=== PATIENT | female | born 1960 ===

== ENCOUNTER 2021-10-07 18:39 | Inpatient (IN) | payer BC ==
[~2021-10-07 18:39] MED LIST: Iopamidol-370 76% 500 ML 1 ML ONE
[2021-10-07 19:23] LABS: #Basophils 0.1 thou/uL (0.0-0.2); #Lymphocytes 0.4 thou/uL (1.20-3.40); #Monocytes 0.5 thou/uL (0.11-0.59); #Neutrophils 5.4 thou/uL (1.40-6.50); %Basophils 0.9 % (0.0-1.0); %Eosinophils 0.3 % (0.0-10.0); %Lymphocytes 5.6 % (21.0-51.0); %Monocytes 7.4 % (0.0-10.0); %Neutrophils 85.8 % (42.0-75.0); Hemoglobin 9.2 g/dL (12.0-16.0); Mean Corpuscular Hemoglobin 32.9 pg (27.0-31.0); RBC Distribution Width 14.8 % (11.5-14.5); Red Blood Cell (RBC) Count 2.79 mill/uL (4.20-5.40); White Blood Cell (WBC) Count 6.2 thou/uL (4.8-10.8)
[2021-10-07 19:42] LABS: MDiff Complete? YES; Macrocytosis SLIGHT = 6-15 cells (100X) (0-5/hpf); Mean Platelet Volume 9.4 fL (7.4-10.4); Platelet Count 45 thou/uL (130-400); Platelet Morphology Comment Appears Decreased; Polychromasia SLIGHT = 2-3 cells (100X) (0-2/hpf)
[2021-10-07 19:44] LABS: ALT (SGPT) 38 U/L (8-55); AST (SGOT) 56 U/L (5-34); Albumin 2.4 g/dL (3.4-4.8); Alkaline Phosphatase 139 U/L (40-110); Anion Gap 12 mmol/L (10-20); BUN (Urea Nitrogen) 18 mg/dL (9.8-20.1); Bilirubin, Total 2.9 mg/dL (0.2-1.2); Calc. Creatinine Clearance 0 mL/min (70-130); Calcium 8.2 mg/dL (7.8-10.44); Carbon Dioxide 18 mmol/L (23-31); Chloride 102 mmol/L (98-107); Globulin 3.8 g/dL (2.4-3.5); Glucose 158 mg/dL (80-115); Lipase 15 U/L (8-78); Potassium 3.9 mmol/L (3.5-5.1); Protein, Total 6.2 g/dL (5.8-8.1); Sodium 128 mmol/L (136-145)
[2021-10-07] MEDS ORDERED: Morphine 4 MG/ML VIAL ONE (19:46)
[2021-10-07] MEDS ORDERED: Acetaminophen 500 MG TAB ONE (19:46)
[2021-10-07 19:51] LABS: Bilirubin Negative (Negative); Blood, Urine Negative (Negative); Clarity Clear (Clear); Glucose, Urine (Dipstick) Normal (Negative); Ketone, Urine Negative (Negative); Leukocyte Negative Leu/uL (Negative); Nitrite Negative (Negative); Protein, Urine (Dipstick) Negative (Neg-Trace); Specific Gravity, Urine 1.026 (1.002-1.036); Urobilinogen 6 mg/dL (Less than 2); pH, Urine 6.5 (5.0-9.0)
[2021-10-07] MEDS ORDERED: Ondansetron PF 4 MG/2 ML Vial ONE (19:58)
[2021-10-07] MEDS ORDERED: metroNIDAZOLE 500 MG in Premix Bag 1 BAG IVPB SCH (22:45)
[2021-10-07] MEDS ORDERED: Sodium Chloride 0.9% 1,000 ML IV SCH (23:00)
[2021-10-07 23:34] VITALS: BMI 42.0
[2021-10-08] MEDS ORDERED: Lactated Ringer's 1,000 ML IV SCH (03:00)
[2021-10-08] MEDS ORDERED: Sodium Chloride 0.9% 1,000 ML IV SCH (03:15)
[2021-10-08] MEDS ORDERED: Azithromycin 500 MG in Sodium Chloride 0.9% 250 ML 250 ML IVPB SCH (06:00)
[2021-10-08 06:54] LABS: #Basophils 0.1 thou/uL (0.0-0.2); #Eosinphils 0.1 thou/uL (0.0-0.7); #Lymphocytes 0.4 thou/uL (1.20-3.40); #Monocytes 0.6 thou/uL (0.11-0.59); #Neutrophils 4.4 thou/uL (1.40-6.50); %Basophils 1.5 % (0.0-1.0); %Lymphocytes 6.7 % (21.0-51.0); %Monocytes 11.6 % (0.0-10.0); %Neutrophils 79.2 % (42.0-75.0); Hemoglobin 8.8 g/dL (12.0-16.0); Mean Corpuscular HGB CONC 32.4 g/dL (32.0-36.0); Mean Corpuscular Hemoglobin 33.8 pg (27.0-31.0); Mean Platelet Volume 9.9 fL (7.4-10.4); Platelet Count 43 thou/uL (130-400); RBC Distribution Width 14.4 % (11.5-14.5); Red Blood Cell (RBC) Count 2.61 mill/uL (4.20-5.40); White Blood Cell (WBC) Count 5.6 thou/uL (4.8-10.8)
[2021-10-08 07:00] LABS: INR-International Normal Ratio 1.6; Prothrombin Time 19.3 sec (12.0-14.7)
[2021-10-08] MEDS ORDERED: metroNIDAZOLE 500 MG in Premix Bag 1 BAG IVPB SCH (07:00)
[2021-10-08 07:03] LABS: ALT (SGPT) 36 U/L (8-55); AST (SGOT) 51 U/L (5-34); Albumin 2.4 g/dL (3.4-4.8); Alkaline Phosphatase 135 U/L (40-110); Anion Gap 11 mmol/L (10-20); BUN (Urea Nitrogen) 15 mg/dL (9.8-20.1); Bilirubin, Total 3.4 mg/dL (0.2-1.2); Calc. Creatinine Clearance 175 mL/min (70-130); Calcium 7.9 mg/dL (7.8-10.44); Carbon Dioxide 20 mmol/L (23-31); Chloride 102 mmol/L (98-107); Globulin 3.7 g/dL (2.4-3.5); Glucose 101 mg/dL (80-115); Potassium 3.5 mmol/L (3.5-5.1); Protein, Total 6.1 g/dL (5.8-8.1); Sodium 129 mmol/L (136-145)
[2021-10-08] MEDS: cefTRIAXone\\ROCEPHIN 1 GM in Sodium Chloride 0.9% 100 ML IVPB SCH (08:43)
[2021-10-08] MEDS: metroNIDAZOLE 500 MG in Premix Bag 1 BAG IVPB SCH ×2 (08:46→15:28)
[2021-10-08] MEDS: Furosemide 40 MG TAB PO SCH (08:47)
[2021-10-08] MEDS: Ondansetron ODT 4 MG TAB PO SCH ×2 (08:47→20:27)
[2021-10-08] MEDS: Rifaximin 550 MG TAB PO SCH ×2 (08:48→20:28)
[2021-10-08] MEDS: Spironolactone 100 MG TAB PO SCH (08:48)
[2021-10-08] MEDS ORDERED: Ibuprofen 200 MG TAB PO PRN (14:21)
[2021-10-08 14:33] LABS: SARS-CoV-2 PCR by NAA Not Detected (NotDetected)
[2021-10-08] MEDS: Ursodiol 300 MG CAP PO SCH (20:29)
[2021-10-09] MEDS: metroNIDAZOLE 500 MG in Premix Bag 1 BAG IVPB SCH ×2 (00:40→10:20)
[2021-10-09 06:05] LABS: #Eosinphils 0.1 thou/uL (0.0-0.7); #Lymphocytes 0.3 thou/uL (1.20-3.40); #Monocytes 0.6 thou/uL (0.11-0.59); #Neutrophils 3.4 thou/uL (1.40-6.50); %Lymphocytes 7.9 % (21.0-51.0); %Monocytes 12.7 % (0.0-10.0); %Neutrophils 77.4 % (42.0-75.0); Hemoglobin 8.4 g/dL (12.0-16.0); Mean Platelet Volume 9.6 fL (7.4-10.4); Platelet Count 38 thou/uL (130-400); RBC Distribution Width 14.4 % (11.5-14.5); Red Blood Cell (RBC) Count 2.47 mill/uL (4.20-5.40); White Blood Cell (WBC) Count 4.3 thou/uL (4.8-10.8)
[2021-10-09 06:27] LABS: ALT (SGPT) 36 U/L (8-55); AST (SGOT) 47 U/L (5-34); Albumin 2.3 g/dL (3.4-4.8); Alkaline Phosphatase 144 U/L (40-110); Anion Gap 10 mmol/L (10-20); BUN (Urea Nitrogen) 17 mg/dL (9.8-20.1); Bilirubin, Total 2.1 mg/dL (0.2-1.2); Calc. Creatinine Clearance 123 mL/min (70-130); Calcium 8.1 mg/dL (7.8-10.44); Carbon Dioxide 22 mmol/L (23-31); Chloride 104 mmol/L (98-107); Globulin 3.7 g/dL (2.4-3.5); Glucose 121 mg/dL (80-115); Potassium 3.8 mmol/L (3.5-5.1); Sodium 132 mmol/L (136-145)
[2021-10-09] MEDS: cefTRIAXone\\ROCEPHIN 1 GM in Sodium Chloride 0.9% 100 ML IVPB SCH (08:49)
[2021-10-09] MEDS: Simethicone Chewable 80 MG TAB PO SCH (08:56)
[2021-10-09] MEDS: Ursodiol 300 MG CAP PO SCH ×2 (08:56→20:33)
[2021-10-09] MEDS: Furosemide 40 MG TAB PO SCH (08:57)
[2021-10-09] MEDS: Ondansetron ODT 4 MG TAB PO SCH ×2 (08:59→20:33)
[2021-10-09] MEDS: Rifaximin 550 MG TAB PO SCH ×2 (08:59→20:33)
[2021-10-09] MEDS: Spironolactone 100 MG TAB PO SCH (09:00)
[2021-10-09] MEDS ORDERED: Acetaminophen 325 MG TAB PO PRN (16:08)
[2021-10-10 05:58] LABS: ALT (SGPT) 34 U/L (8-55); AST (SGOT) 43 U/L (5-34); Albumin 2.3 g/dL (3.4-4.8); Alkaline Phosphatase 146 U/L (40-110); Anion Gap 11 mmol/L (10-20); BUN (Urea Nitrogen) 17 mg/dL (9.8-20.1); Bilirubin, Total 1.5 mg/dL (0.2-1.2); Calc. Creatinine Clearance 150 mL/min (70-130); Calcium 8.1 mg/dL (7.8-10.44); Carbon Dioxide 20 mmol/L (23-31); Chloride 104 mmol/L (98-107); Globulin 3.7 g/dL (2.4-3.5); Glucose 97 mg/dL (80-115); Potassium 3.7 mmol/L (3.5-5.1); Sodium 131 mmol/L (136-145)
[2021-10-10] MEDS: Ondansetron ODT 4 MG TAB PO SCH (08:24)
[2021-10-10] MEDS: Simethicone Chewable 80 MG TAB PO SCH (08:24)
[2021-10-10] MEDS: Spironolactone 100 MG TAB PO SCH (08:24)
[2021-10-10] MEDS: Rifaximin 550 MG TAB PO SCH (08:24)
[2021-10-10] MEDS: Furosemide 40 MG TAB PO SCH (08:24)
[2021-10-10] MEDS: Ursodiol 300 MG CAP PO SCH (08:25)
[2021-10-10 08:33] VITALS: TEMP 97.8
[2021-10-10 14:28] VITALS: BP 141/77
[2021-10-14 09:41] LABS: Norovirus GI Negative (Negative); Norovirus GII Negative (Negative)
== END 2021-10-10 14:36 | disposition home or self-care (01) | DRG 872 ==
LOC: ERS 18:39 → T4-B 22:56
PROVIDERS: ADMIT Student in an Organized Health Care Education/Training Program; ATTEND Student in an Organized Health Care Education/Training Program
DX: A41.9 Sepsis, unspecified organism (principal); E87.1 Hypo-osmolality and hyponatremia; D61.818 Other pancytopenia; C22.0 Liver cell carcinoma; K76.6 Portal hypertension; Z20.822 Contact with and (suspected) exposure to COVID-19; A08.4 Viral intestinal infection, unspecified; R73.9 Hyperglycemia, unspecified; I10 Essential (primary) hypertension; F17.210 Nicotine dependence, cigarettes, uncomplicated; K74.3 Primary biliary cirrhosis; K75.4 Autoimmune hepatitis; M10.9 Gout, unspecified; Z90.49 Acquired absence of other specified parts of digestive tract; Z98.51 Tubal ligation status
CPT/HCPCS: 36415; 74177; 80053; 81003; 83690; 84145; 85025; 85610; 87015; 87045; 87046; 87206; 87427; 87449; 87798; 96374; 96375; J0456; J0696; J0744; J2270; J2405; J3490; J7050; J7120; Q0162; Q9967; U0003; U0005

== ENCOUNTER 2021-11-29 11:05 | Inpatient (IN) | payer BC ==
[2021-11-29] MEDS ORDERED: Dicyclomine 20 MG/2 ML VIAL ONE (11:56)
[2021-11-29] MEDS ORDERED: Morphine 4 MG/ML VIAL ONE (11:56)
[2021-11-29] MEDS ORDERED: Ondansetron PF 4 MG/2 ML Vial ONE (11:56)
[2021-11-29 12:06] LABS: ALT (SGPT) 36 U/L (8-55); AST (SGOT) 69 U/L (5-34); Albumin 3.5 g/dL (3.4-4.8); Alkaline Phosphatase 127 U/L (40-110); Anion Gap 15 mmol/L (10-20); BUN (Urea Nitrogen) 17 mg/dL (9.8-20.1); Bilirubin, Total 2.3 mg/dL (0.2-1.2); Calc. Creatinine Clearance 0 mL/min (70-130); Calcium 9.1 mg/dL (7.8-10.44); Carbon Dioxide 18 mmol/L (23-31); Chloride 103 mmol/L (98-107); Globulin 4.3 g/dL (2.4-3.5); Glucose 105 mg/dL (80-115); Lipase 36 U/L (8-78); Magnesium 1.7 mg/dL (1.6-2.6); Potassium 3.7 mmol/L (3.5-5.1); Protein, Total 7.8 g/dL (5.8-8.1); Sodium 132 mmol/L (136-145)
[2021-11-29 12:08] LABS: Anisocytosis SLIGHT = 6-15 cells (100X) (0-5/hpf); Band 16 % (5-11); Eosinophils 1 % (0-10); Hemoglobin 11.7 g/dL (12.0-16.0); Lymphocytes 15 % (21-51); MDiff Complete? YES; Macrocytosis SLIGHT = 6-15 cells (100X) (0-5/hpf); Mean Corpuscular HGB CONC 32.5 g/dL (32.0-36.0); Mean Corpuscular Hemoglobin 32.8 pg (27.0-31.0); Mean Platelet Volume 11.5 fL (7.4-10.4); Monocytes 16 % (0-10); Neutrophil 51 % (42-75); Platelet Count 41 thou/uL (130-400); Platelet Morphology Comment Appears Decreased; RBC Distribution Width 18.7 % (11.5-14.5); Red Blood Cell (RBC) Count 3.57 mill/uL (4.20-5.40); White Blood Cell (WBC) Count 2.7 thou/uL (4.8-10.8)
[2021-11-29 13:16] LABS: Bilirubin Negative (Negative); Blood, Urine Negative (Negative); Clarity Clear (Clear); Glucose, Urine (Dipstick) Normal (Negative); Ketone, Urine Negative (Negative); Leukocyte Negative Leu/uL (Negative); Nitrite Negative (Negative); Protein, Urine (Dipstick) 10 mg/dL (Neg-Trace); Specific Gravity, Urine 1.023 (1.002-1.036); Urobilinogen Normal mg/dL (Less than 2)
[2021-11-29] MEDS ORDERED: Iopamidol-370 76% 500 ML 1 ML ONE (14:38)
[2021-11-29] MEDS ORDERED: Fentanyl 100 MCG/2 ML VIAL ONE (14:42)
[2021-11-29] MEDS ORDERED: Ondansetron ODT 4 MG TAB PO PRN (14:46)
[2021-11-29] MEDS ORDERED: Ondansetron PF 4 MG/2 ML Vial IVP PRN (14:46)
[2021-11-29] MEDS ORDERED: Lactated Ringer's 1,000 ML IV SCH ×2 (15:15→22:00)
[2021-11-29 15:39] VITALS: BMI 38.0
[2021-11-29] MEDS ORDERED: Piperacillin/Tazobactam 3.375 GM in Sodium Chloride 0.9% 100 ML IVPB SCH ×2 (16:00→18:00)
[2021-11-29] MEDS ORDERED: Morphine 2 MG/ML VIAL SLOW IVP PRN (16:09)
[2021-11-29] MEDS: Nicotine 14 MG PATCH TD SCH (16:10)
[2021-11-29] MEDS: Rifaximin 550 MG TAB PO SCH (20:01)
[2021-11-29] MEDS: Piperacillin/Tazobactam 3.375 GM in Sodium Chloride 0.9% 100 ML IVPB SCH (20:02)
[2021-11-30] MEDS: Piperacillin/Tazobactam 3.375 GM in Sodium Chloride 0.9% 100 ML IVPB SCH ×3 (04:25→22:16)
[2021-11-30 06:55] LABS: ALT (SGPT) 37 U/L (8-55); AST (SGOT) 66 U/L (5-34); Albumin 3.4 g/dL (3.4-4.8); Alkaline Phosphatase 118 U/L (40-110); Anion Gap 13 mmol/L (10-20); BUN (Urea Nitrogen) 13 mg/dL (9.8-20.1); Bilirubin, Total 2.4 mg/dL (0.2-1.2); Calc. Creatinine Clearance 154 mL/min (70-130); Calcium 8.9 mg/dL (7.8-10.44); Carbon Dioxide 19 mmol/L (23-31); Chloride 108 mmol/L (98-107); Globulin 4.1 g/dL (2.4-3.5); Glucose 73 mg/dL (80-115); Potassium 3.6 mmol/L (3.5-5.1); Protein, Total 7.5 g/dL (5.8-8.1); Sodium 136 mmol/L (136-145)
[2021-11-30 07:47] LABS: #Eosinphils 0.1 thou/uL (0.0-0.7); #Lymphocytes 0.4 thou/uL (1.20-3.40); #Monocytes 0.3 thou/uL (0.11-0.59); #Neutrophils 1.5 thou/uL (1.40-6.50); %Basophils 0.2 % (0.0-1.0); %Eosinophils 2.7 % (0.0-10.0); %Lymphocytes 19.1 % (21.0-51.0); %Monocytes 13.7 % (0.0-10.0); %Neutrophils 64.3 % (42.0-75.0); Anisocytosis SLIGHT = 6-15 cells (100X) (0-5/hpf); Hemoglobin 11.8 g/dL (12.0-16.0); MDiff Complete? YES; Macrocytosis MODERATE=16-30 cells (100X) (0-5/hpf); Mean Corpuscular HGB CONC 32.1 g/dL (32.0-36.0); Mean Platelet Volume 11.7 fL (7.4-10.4); Platelet Count 47 thou/uL (130-400); Platelet Morphology Comment Appears Decreased; RBC Distribution Width 18.7 % (11.5-14.5); Red Blood Cell (RBC) Count 3.56 mill/uL (4.20-5.40); White Blood Cell (WBC) Count 2.3 thou/uL (4.8-10.8)
[2021-11-30] MEDS: Rifaximin 550 MG TAB PO SCH ×2 (08:24→22:15)
[2021-11-30] MEDS ORDERED: Spironolactone 100 MG TAB PO SCH (09:00)
[2021-11-30] MEDS ORDERED: Furosemide 40 MG TAB PO SCH (09:00)
[2021-11-30 12:27] LABS: SARS-CoV-2 PCR by NAA Not Detected (NotDetected)
[2021-11-30] MEDS: URSODIOL 250 MG PO SCH ×3 (12:52→22:17)
[2021-11-30] MEDS: Nicotine 14 MG PATCH TD SCH (15:16)
[2021-12-01] MEDS: Piperacillin/Tazobactam 3.375 GM in Sodium Chloride 0.9% 100 ML IVPB SCH ×2 (05:02→12:25)
[2021-12-01] MEDS: Rifaximin 550 MG TAB PO SCH (08:47)
[2021-12-01] MEDS: URSODIOL 250 MG PO SCH (08:48)
[2021-12-01] MEDS ORDERED: Ferrous Sulfate 325 MG TAB PO SCH (09:00)
[2021-12-01 10:19] LABS: #Lymphocytes 0.4 thou/uL (1.20-3.40); #Monocytes 0.2 thou/uL (0.11-0.59); %Eosinophils 1.7 % (0.0-10.0); %Lymphocytes 23.6 % (21.0-51.0); %Monocytes 12.3 % (0.0-10.0); %Neutrophils 62.3 % (42.0-75.0); Hemoglobin 10.9 g/dL (12.0-16.0); Mean Corpuscular HGB CONC 32.3 g/dL (32.0-36.0); Mean Platelet Volume 11.7 fL (7.4-10.4); Platelet Count 41 thou/uL (130-400); RBC Distribution Width 18.8 % (11.5-14.5); White Blood Cell (WBC) Count 1.6 thou/uL (4.8-10.8)
[2021-12-01 10:42] LABS: ALT (SGPT) 34 U/L (8-55); AST (SGOT) 63 U/L (5-34); Albumin 2.9 g/dL (3.4-4.8); Alkaline Phosphatase 98 U/L (40-110); Anion Gap 12 mmol/L (10-20); BUN (Urea Nitrogen) 7 mg/dL (9.8-20.1); Bilirubin, Total 2.2 mg/dL (0.2-1.2); Calc. Creatinine Clearance 162 mL/min (70-130); Calcium 8.3 mg/dL (7.8-10.44); Carbon Dioxide 17 mmol/L (23-31); Chloride 109 mmol/L (98-107); Globulin 3.6 g/dL (2.4-3.5); Glucose 115 mg/dL (80-115); Potassium 3.9 mmol/L (3.5-5.1); Protein, Total 6.5 g/dL (5.8-8.1); Sodium 134 mmol/L (136-145)
[2021-12-01 15:04] LABS: Hemoglobin 11.1 g/dL (12.0-16.0); Mean Corpuscular HGB CONC 31.9 g/dL (32.0-36.0); Mean Corpuscular Hemoglobin 32.4 pg (27.0-31.0); Mean Platelet Volume 11.1 fL (7.4-10.4); Platelet Count 46 thou/uL (130-400); RBC Distribution Width 18.7 % (11.5-14.5); Red Blood Cell (RBC) Count 3.42 mill/uL (4.20-5.40)
[2021-12-01 15:57] VITALS: BP 110/70; TEMP 97.6
== END 2021-12-01 17:12 | disposition home or self-care (01) | DRG 391 ==
LOC: ERS 11:05 → T4-A 14:11 → OBSVTOIN 11-30 08:44
PROVIDERS: ADMIT Family Medicine; ATTEND Family Medicine
DX: K57.92 Diverticulitis of intestine, part unspecified, without perforation or abscess without bleeding (principal); D61.811 Other drug-induced pancytopenia; K56.609 Unspecified intestinal obstruction, unspecified as to partial versus complete obstruction; E87.1 Hypo-osmolality and hyponatremia; C22.0 Liver cell carcinoma; K92.1 Melena; A09 Infectious gastroenteritis and colitis, unspecified; I50.30 Unspecified diastolic (congestive) heart failure; K74.60 Unspecified cirrhosis of liver; I11.0 Hypertensive heart disease with heart failure; M06.9 Rheumatoid arthritis, unspecified; F17.210 Nicotine dependence, cigarettes, uncomplicated; E66.9 Obesity, unspecified; E86.0 Dehydration; K75.4 Autoimmune hepatitis; T50.8X5A Adverse effect of diagnostic agents, initial encounter; Z20.822 Contact with and (suspected) exposure to COVID-19; Z79.899 Other long term (current) drug therapy; Z90.710 Acquired absence of both cervix and uterus; Z90.49 Acquired absence of other specified parts of digestive tract; Z98.51 Tubal ligation status; Z68.38 Body mass index [BMI] 38.0-38.9, adult
CPT/HCPCS: 36415; 74177; 80053; 81003; 82140; 82274; 82607; 82746; 83690; 83735; 85025; 87045; 87046; 87324; 87427; 87449; 96365; 96368; 96372; 96375; 96376; G0378; J0500; J2270; J2405; J2543; J3010; J3490; J7120; Q9967; U0003; U0005